=== PATIENT | female | born 1975 | race Caucasian/White ===

== ENCOUNTER 2018-12-24 01:12 | Emergency (ER) | payer MEDICAID ==
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
--- NOTE | 2018-12-24 10:01 | CR ---
Cervical spine: AP, lateral and odontoid views of the cervical spine were obtained. Comparison: No previous cervical spine imaging. Severe disc space narrowing is noted at C3-C4, C5-C6 and C6-C7. Large posterior osteophytes are noted at C6-C7 with smaller posterior osteophytes at C3-C4 and C5-C6. Anterior osteophytes at C5-C6 and C6-C7. Minimal retrolisthesis is noted at C3-C4. No other abnormal subluxation is seen. No acute bony abnormality is definitely appreciated. Impression: 1. Degenerative change as noted above. 2. Nothing acute is appreciated on three-view cervical spine study. Diagnostic code #2
== END 2018-12-24 02:27 | disposition home or self-care (01) ==
LOC: JD.ED 01:12
DX: S16.1XXA Strain of muscle, fascia and tendon at neck level, initial encounter (principal); J44.9 Chronic obstructive pulmonary disease, unspecified; E78.00 Pure hypercholesterolemia, unspecified; I10 Essential (primary) hypertension; F17.210 Nicotine dependence, cigarettes, uncomplicated; Z88.5 Allergy status to narcotic agent; Z79.899 Other long term (current) drug therapy; Y04.8XXA Assault by other bodily force, initial encounter; Y07.03 Male partner, perpetrator of maltreatment and neglect
CPT/HCPCS: 72040; 72040-26; 99284-25